=== PATIENT | female | born 1945 | race Hispanic/Latino ===

== ENCOUNTER 2017-08-12 11:13 | Day surgery (SDC) | payer MEDICARE, OTHER ==
[2017-08-12] MEDS ORDERED: IOPIDINE OS ONE (12:06)
[2017-08-12] MEDS ORDERED: NEOFRIN OS ONE (12:06)
[2017-08-12] MEDS ORDERED: MYDRIACYL OS ONE (12:06)
[2017-08-12] MEDS ORDERED: IOPIDINE ONE (12:08)
[2017-08-12] MEDS ORDERED: MYDRIACYL ONE (12:08)
[2017-08-12] MEDS ORDERED: NEOFRIN ONE (12:08)
[2017-08-12 12:20] VITALS: BP 154/73
== END 2017-08-12 11:14 | disposition home or self-care (01) ==
LOC: OR 11:13
PROVIDERS: ATTEND Specialist
DX: H26.492 Other secondary cataract, left eye (principal); I10 Essential (primary) hypertension; I48.91 Unspecified atrial fibrillation; G47.30 Sleep apnea, unspecified; K21.9 Gastro-esophageal reflux disease without esophagitis; M19.90 Unspecified osteoarthritis, unspecified site; Z90.89 Acquired absence of other organs; Z98.42 Cataract extraction status, left eye; Z90.49 Acquired absence of other specified parts of digestive tract; Z90.710 Acquired absence of both cervix and uterus; Z96.652 Presence of left artificial knee joint